=== PATIENT | female | born 1975 | race Caucasian/White ===

== ENCOUNTER 2024-03-18 07:34 | Outpatient (CLI) | payer MEDICARE, MEDICAID ==
[~2024-03-18] VITALS: Ht 162.6 cm; Wt 66.3 kg
[2024-03-18 07:55] VITALS: BP 145/67; O2SAT 100
[2024-03-18] MEDS: diphenhydrAMINE 25MG CAP PO ONE (08:01)
[2024-03-18] MEDS: methylPREDNISolone 125MG 2ML VIAL IV ONE (08:01)
[2024-03-18] MEDS: ACETAMINOPHEN TAB 650MG DOSE (2X325MG) PO ONE (08:01)
[2024-03-18] MEDS ORDERED: BIOT1CAP2 PO (08:37)
[2024-03-18] MEDS ORDERED: OCRE300I IV (08:37)
[2024-03-18] MEDS ORDERED: CITA20TA6 PO (08:37)
[2024-03-18] MEDS ORDERED: GABA-282 PO (08:37)
[2024-03-18] MEDS ORDERED: NOXI1TAB PO (08:37)
[2024-03-18] MEDS ORDERED: TRAM50TA2 PO (08:37)
[2024-03-18] MEDS: OCRELIZUMAB 600 MG in NS 500 ML IV ONE (08:41)
[2024-03-18 09:15] VITALS: BP 105/53; O2SAT 97
[2024-03-18 09:45] VITALS: BP 129/59; O2SAT 98
[2024-03-18 10:45] VITALS: BP 126/66; O2SAT 98
[2024-03-18 11:45] VITALS: BP 130/69; O2SAT 97
[2024-03-18 12:44] VITALS: BP 100/55; O2SAT 99
== END 2024-03-18 12:45 ==
LOC: M INFU 07:34
PROVIDERS: ATTEND Psychiatry & Neurology Neurology
DX: G35 Multiple sclerosis (principal)
CPT/HCPCS: 96365; 96366; J2350; J2919

== ENCOUNTER → 2024-10-07 | Outpatient (CLI) | payer MEDICARE, MEDICAID ==
[~2024-10-07] VITALS: Ht 162.6 cm; Wt 73.6 kg
[2024-10-07] VITALS (7 sets, daily range): BP systolic 108–120; BP diastolic 54–61; O2SAT 97–100
[~2024-10-07] MED LIST: BIOT1CAP2 PO; CITA20TA6 PO; GABA-1172 PO; NOXI1TAB PO; OCRE300I IV; TRAM50TA2 PO
[2024-10-07] MEDS: diphenhydrAMINE 25MG CAP PO ONE (07:58)
[2024-10-07] MEDS: ACETAMINOPHEN 325 MG TAB PO ONE (07:58)
[2024-10-07] MEDS: methylPREDNISolone 125MG 2ML VIAL IV ONE (07:58)
[2024-10-07] MEDS: OCRELIZUMAB 600 MG in NS 500 ML IV ONE (08:51)
== END ==
LOC: M INFU 07:50
PROVIDERS: ATTEND Psychiatry & Neurology Neurology
DX: G35 Multiple sclerosis (principal)
CPT/HCPCS: 96365; 96366; 96375; J2350; J2919